=== PATIENT | female | born 1970 | race Caucasian/White ===

== ENCOUNTER 2018-03-23 14:44 | Emergency (ER) | payer OTHER ==
[~2018-03-23] VITALS: Ht 170.2 cm; Wt 90.7 kg
== END 2018-03-23 21:46 | disposition home or self-care (01) ==
LOC: ER 14:44
DX: R16.0 Hepatomegaly, not elsewhere classified (principal); R10.32 Left lower quadrant pain

== ENCOUNTER 2023-07-23 17:07 | Emergency (ER) | payer OTHER ==
[~2023-07-23] VITALS: Ht 170.2 cm; Wt 85.3 kg
[2023-07-23] MEDS ORDERED: VALSARTAN80 MG PO (17:52)
== END 2023-07-23 20:28 | disposition home or self-care (01) ==
LOC: ER 17:07
PROVIDERS: General Practice
DX: I88.9 Nonspecific lymphadenitis, unspecified (principal); R42 Dizziness and giddiness